=== PATIENT | male | born 1940 | race Caucasian/White ===

== ENCOUNTER 2017-01-05 20:09 | Emergency (ER) | payer MEDICARE, OTHER ==
[~2017-01-05 20:09] MED LIST: ADVAIR 2501 DISK W/D; ALLEGRA180 MG; PROTONIX40 MG
[2017-01-05] MEDS ORDERED: PRINIVIL5 M1 PO (20:44)
[2017-01-05] MEDS ORDERED: PREDNISOLONE SO10 ML OP (20:45)
[2017-01-05] MEDS ORDERED: SIMBRINZA 1%-0.28 ML OP (20:46)
[2017-01-05] MEDS ORDERED: XALATAN2.5 M1 EACH EYE (20:46)
[2017-01-05] MEDS ORDERED: PROAIR RESPICL90 MCG INH (20:47)
[2017-01-05 20:49] LABS: BASO % 0.3 % (0-2); EOS % 3.9 % (0-7); EOSINOPHIL ABSOLUTE COUNT 0.3 tho/cmm (0.0-0.7); HCT-HEMATOCRIT 44.8 % (36.0-53.5); HGB-HEMOGLOBIN 15.9 gm/dl (13.5-17.0); IMMATURE GRANULOCYTES ABSOLUTE 0.04 tho/cmm (0-0.03); IMMATURE GRANULOCYTES PERCENT 0.6 % (0-0.3); LYMPH % 27.7 % (20-45); LYMPH ABSOLUTE COUNT 1.8 tho/cmm (0.8-4.5); MCH (MEAN CORPUSCULAR HGB) 34.8 pg (28.0-32.0); MCHC MEAN CORPUSCULAR HGB CONC 35.5 % (32.0-36.0); MEAN PLATELET VOLUME 9.8 cmc (9.4-12.4); MONO % 8.7 % (0-12); MONOCYTE ABSOLUTE COUNT 0.6 tho/cmm (0.0-1.2); NEUTROPHIL ABSOLUTE COUNT 3.9 tho/cmm (1.6-8.0); NEUTROPHIL-AUTOMATED 3.9 tho/cmm (1.6-8.0); NEUTROPHILS % 58.8 % (40-80); PLATELET COUNT 221 tho/cmm (150-450); RED BLOOD COUNT 4.57 mil/cmm (4.40-5.70); RED CELL DISTRIBUTION WIDTH 13.5 % (12.4-16.4); WHITE BLOOD COUNT 6.7 tho/cmm (4.0-10.0)
[2017-01-05 21:12] LABS: ANION GAP 14 mmol/L (0-20); BLOOD UREA NITROGEN 20 mg/dl (6-24); CALCIUM 9.1 mg/dl (8.5-10.5); CARBON DIOXIDE-VENOUS 23 mmol/L (22-32); CHLORIDE 109 mmol/l (96-110); CREATININE 1.05 mg/dl (0.60-1.30); GLUCOSE 97 mg/dL (70-110); POTASSIUM 4.1 mmol/L (3.7-5.1); SODIUM 142 mmol/L (135-145); eGFR VALUE FOR BLACK 80 mL/Min
[2017-01-05] MEDS ORDERED: PREDNISONE20 M1 PO (22:23)
[2017-01-05] MEDS ORDERED: PROAIR HFA8.5 GM INH (22:23)
== END 2017-01-05 22:35 ==
LOC: EDMED 20:09
PROVIDERS: Emergency Medicine
DX: J44.1 Chronic obstructive pulmonary disease with (acute) exacerbation (principal); I10 Essential (primary) hypertension; Z87.891 Personal history of nicotine dependence; Z79.51 Long term (current) use of inhaled steroids; Z79.899 Other long term (current) drug therapy
CPT/HCPCS: J2930; Q9967